=== PATIENT | female | born 1950 | race Caucasian/White ===

== ENCOUNTER 2017-06-19 10:58 | Emergency (ER) | payer OTHER ==
[~2017-06-19] VITALS: Ht 157.5 cm; Wt 58.1 kg
[~2017-06-19 10:58] MED LIST: BACTRIM DS TAB1 EACH PO; CELEXA20 MG PO; FLONASE 0.05%50 MCG NASAL; LISINOPRIL20 MG PO; VENTOLIN HFA 1818 GM INH
[2017-06-19 11:00] VITALS: BP 131/86
[2017-06-19] MEDS ORDERED: NORCO 5-325 TA1 EACH PO (11:11)
[2017-06-19] MEDS ORDERED: PREDNISONE 10 M10 MG PO (11:12)
== END 2017-06-19 11:30 | disposition home or self-care (01) ==
LOC: ER 10:58
DX: M76.32 Iliotibial band syndrome, left leg (principal); I10 Essential (primary) hypertension; F32.9 Major depressive disorder, single episode, unspecified; Z98.890 Other specified postprocedural states; Z88.1 Allergy status to other antibiotic agents

== ENCOUNTER → 2017-08-08 | Outpatient (CLI) | payer OTHER ==
[~2017-08-08] MED LIST changes: +NORCO 5-325 TA1 EACH PO; +PREDNISONE 10 M10 MG PO
== END ==
LOC: MRI 12:37
DX: M25.551 Pain in right hip (principal); F17.200 Nicotine dependence, unspecified, uncomplicated

== ENCOUNTER 2018-05-27 04:17 | Inpatient (IN) | payer OTHER ==
[~2018-05-27] VITALS: Ht 154.9 cm; Wt 57.6 kg
--- NOTE | ~2018-05-27 | EKG ---
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: Ge FIELD : 1950 Requested By: Mateo Howell Order Number: [id number] MD: Maury Guzman Measurements Intervals [place] Rate: 83 P: 42 ME: 163 QRS: -53 QRSD: 92 T: 28 QT: 364 QTc: 428 Interpretive Statements Sinus rhythm Left anterior fascicular block Abnormal R-wave progression, early transition Compared to ECG 12/29/2015 10:30:23 Left anterior fascicular block now present Sinus bradycardia no longer present Electronically Signed On 06-03-2018 16:54:09 CDT by Maury Guzman [email or web address] <ELECTRONICALLY SIGNED> By: Maury Guzman MD 06/03/18 1654 1514 1514 Maury Guzman MD /EPI
--- NOTE | ~2018-05-27 | EKG ---
[address] [place] [address] ELECTROCARDIOGRAM REPORT Name: OKSANA MARIN Room #: 200-I [facility] IN M.R.#: [id number] Admission: 05/27/18 Attend Phys: Glenn Alfaro MD Discharge: 05/30/18 Date of : 48 Report #: [id number] THIS REPORT FOR: //name// [facility] ED Test Date: 2018-05-27 Test Time: 04:45:13 Pat Name: OKSANA MARIN Department: Room: 200 Gender: F Visual Basic Programmer: IVÁN : 1950 Requested By: Matias Granda Order Number: [id number] MD: Maury Guzman Measurements Intervals [place] Rate: 91 P: 60 TN: 170 QRS: -46 QRSD: 93 T: 45 QT: 352 QTc: 434 Interpretive Statements Sinus rhythm Probable left atrial enlargement Left anterior fascicular block Compared to ECG 12/29/2015 10:30:23 Left anterior fascicular block now present Sinus bradycardia no longer present Electronically Signed On 05-31-2018 14:35:14 CDT by Maury Guzman [email or web address] <ELECTRONICALLY SIGNED> By: Maury Guzman MD 05/31/18 1435 0445 0445 Maury Guzman MD /EPI
--- NOTE | ~2018-05-27 | 2DMMODE ---
[facility] [address] [place] [address] 2 D/M-MODE ECHOCARDIOGRAM Name: OKSANA MARIN Room #: 200-I ADM IN .R.#: [id number] Admission: 05/27/18 Attend Phys: Glenn Alfaro MD Discharge: Date of : 48 Date of Service: 05/27/18 1545 Report #: [id number] THIS REPORT FOR: //name// APPROVED REPORT Study performed: 05/27/2018 14:55:04 EXAM: Comprehensive 2D, Doppler, and color-flow Echocardiogram Patient Location: Bedside Room #: 200 Status: routine BSA: 1.56 HR: 62 bpm BP: 149/79 mmHg Rhythm: NSR Other Information Study Quality: Adequate Indications Elevated Troponin Hypertension/HDD 2D Dimensions RVDd: 34.20 mm IVSd: 8.95 (7-11mm) LVOT Diam: 18.86 (18-24mm) LVDd: 46.21 mm PWd: 8.84 (7-11mm) Ascending Ao: 29.04 (22-36mm) LVDs: 28.09 (25-40mm) Aortic Root: 29.88 mm IVC: 14.00 mm Volumes Left Atrial Volume (Systole) Single Plane 4CH: 35.88 mL Single Plane 2CH: 31.20 mL LA ESV Index: 24.00 mL/m2 Aortic Valve AoV Peak Kirill.: 1.35 m/s AO Peak Gr.: 7.32 mmHg LVOT Max P.36 mmHg LVOT Max V: 1.26 m/s NIKKI Vmax: 2.60 cm2 Mitral Valve E/A Ratio: 1.1 MV Decel. Time: 157.89 ms [facility] [address] [place] [address] 2 D/M-MODE ECHOCARDIOGRAM Name: OKSANA MARIN Room #: 200-I [facility] IN [facility].#: [id number] Admission: 05/27/18 Attend Phys: Glenn Alfaro MD Discharge: Date of : 48 Date of Service: 05/27/18 1545 Report #: [id number] MV E Max Kirill.: 0.93 m/s MV A Kirill.: 0.86 m/s MV PHT: 45.79 ms IVRT: 73.82 ms Pulmonary Valve PV Peak Kirill.: 0.86 m/s PV Peak Gr.: 2.97 mmHg Pulmonary Vein P Vein S: 0.64 m/s P Vein A: 0.36 m/s P Vein D: 0.47 m/s P Vein A Dur.: 129.2 msec P Vein S/D Ratio: 1.36 Tricuspid Valve TR Peak Kirill.: 2.82 m/s TR Peak Gr.: 31.89 mmHg PA Pressure: 37.00 mmHg Left Ventricle The left ventricle is normal size. There is normal LV segmental wall motion. There is normal left ventricular wall thickness. The left ventricular systolic function is normal. The left ventricular ejection fraction is within the normal range. LVEF is 55-60%. Grade I - abnormal relaxation pattern. Right Ventricle The right ventricle is normal size. The right ventricular systolic function is normal. Atria The left atrium size is normal. The right atrium size is normal. Aortic Valve The aortic valve is normal in structure. No aortic regurgitation is present. There is no aortic valvular stenosis. Mitral Valve The mitral valve is normal in structure. Mild mitral regurgitation. No evidence of mitral valve stenosis. Tricuspid Valve The tricuspid valve is normal in structure. There is trace to mild tricuspid regurgitation. Estimated PAP 37 mmHg. There is mild pulmonary hypertension. [address] [address] 2 D/M-MODE ECHOCARDIOGRAM Name: OKSANA MARIN Room #: 200-I ADM IN ..#: [id number] Admission: 05/27/18 Attend Phys: Glenn Alfaro MD Discharge: Date of : 48 Date of Service: 05/27/18 1545 Report #: [id number] Pulmonic Valve The pulmonary valve is normal in structure. Trace pulmonic regurgitation. Great Vessels The aortic root is normal in size. IVC is normal in size and collapses >50% with inspiration. Pericardium There is no pericardial effusion. <Conclusion> The left ventricle is normal size. There is normal left ventricular wall thickness. The left ventricular systolic function is normal. Grade I - abnormal relaxation pattern. The right ventricle is normal size. The left atrium size is normal. There is no aortic valvular stenosis. Mild mitral regurgitation. There is trace to mild tricuspid regurgitation. Estimated PAP 37 mmHg. There is no pericardial effusion. <ELECTRONICALLY SIGNED> By: Musa Ordaz MD 05/27/18 1545 1545 1545 Musa Ordaz MD /INF
--- NOTE | ~2018-05-27 | CATHLAB ---
[facility] [address] [place] [address] INVASIVE PROCEDURE REPORT Name: OKSANA MARIN Room #: 200-I ADM IN ..#: [id number] Admission: 05/27/18 Attend Phys: Glenn Alfaro MD Discharge: Date of : 48 Date of Service: 05/28/18 1555 Report #: [id number] THIS REPORT FOR: //name// APPROVED REPORT Study performed: 05/28/2018 07:36:10 Patient Details Patient Status: In-Patient Room #: The patient is a 67 year-old female Event Personnel Musa Ordaz [address] Bailiff, Judith Rivera CVT Monitor, Corazon Kramer RN RN, Gary García Scryanci Procedures Performed Left Heart Cath w/or w/o Coronaries [id number] [facility] Indication Dyspnea, Chest pain, Minimal troponin elevation. Risk Factors Hypercholesterolemia, Hypertension Procedure Narrative The Right Groin^ was infiltrated with subcutaneous anesthesia. A PINNACLE 4FR Sheath #[id number] sheath was inserted into the RFA^. Coronary angiography was performed using coronary diagnostic catheters. The right coronary system was accessed and visualized with a JR4 catheter. The left coronary system was accessed and visualized with a JL4 catheter. The left ventricle was accessed and visualized with a PIGTAIL catheter. Left ventricular/Aortic Valve gradient assessed via catheter pullback. Left ventriculogram was performed in 30 degree projection. Hemostasis was obtained with manual pressure following sheath removal without any complications. The patient tolerated the procedure well and there were no complications associated with the procedure. There was no hematoma. Intraoperative Conscious Sedation Sedation start time: 8.17 Case end Time: 8.57 Fentanyl 50 mcg Versed 1 mg Fluoro Time: 2.80 minutes Dose: DAP 4513.00 cGycm2 707 mGy [facility] [address] [place] [address] INVASIVE PROCEDURE REPORT Name: OKASNA MARIN Room #: 200-I [facility] IN [facility].#: [id number] Admission: 05/27/18 Attend Phys: Glenn Alfaro MD Discharge: Date of : 48 Date of Service: 05/28/18 1555 Report #: [id number] Contrast Type and Amount: Omnipaque 170 ml Coronary Angiography The patient's coronary anatomy is right dominant. Diagnostic Cath Left Main Patent vessel, with no flow-limiting lesions. LAD Moderate size caliber vessel, traveling down the anterior wall and wrapping around the apex. There is only mild disease in the midsegment, 20%. Diagonal 1 Patent vessel, with no flow-limiting lesions. Diagonal 2 Patent vessel, with no flow-limiting lesions. Circumflex Moderate size caliber vessel, with no flow-limiting lesions. OM1 Moderate size caliber vessel, with no flow-limiting lesions. Right Coronary Dominant vessel, with minimal luminal irregularities in the midsegment. R PDA Patent vessel, with no flow-limiting lesions. RPLV Patent vessel, with no flow-limiting lesions. Ramus Patent vessel, with no flow-limiting lesions. Left Ventriculography The left ventricle is normal in size with normal contractility. The left ventricular ejection fraction is estimated to be 55-60%. Hemodynamics The aortic pressure is 120/64 mmHg with a mean of 82 mmHg. The left ventricular pressure is 113/12 mmHg with a mean of mmHg. The left ventricular end diastolic pressure is 20 mmHg. There was no gradient across the aortic valve upon pullback. Pullback from the left ventricle to the aorta revealed no gradient across the aortic valve. Conclusion 1. Mild disease in the LAD. 2. Right dominant system. 3. Normal LV systolic function. 4. Recommend risk factor management. <ELECTRONICALLY SIGNED> By: Musa Ordaz MD 05/28/18 1555 1555 1555 Musa Ordaz MD /INF
--- NOTE | ~2018-05-27 | PATH ---
[facility] [address] [address] PATHOLOGY RPT PROCEDURE Name: BEE YU Room #: 200-I DIS IN M.R.#: [id number] Admission: 05/27/18 Date of : 48 Discharge: 05/30/18 Report #: [id number] Path Case #: [id number] [facility] Accession Number: [id number] . 01 Material submitted: . PART A: BX SMALL BOWEL R/O CELIAC DISEASE PART B: BX GASTRITIS . 01 Clinical history: . Pre-OP DX: Nausea Post-OP DX: Gastritis . 02 Diagnosis: A. Small bowel mucosa, small bowel rule out celiac disease, endoscopic biopsy: - No diagnostic abnormalities present. - Negative for villous blunting or increase in intraepithelial lymphocytes. . B. Gastric mucosa, gastritis, endoscopic biopsy: - Mild chronic active gastritis. - Negative for intestinal metaplasia or atrophy. - Negative for Helicobacter pylori (properly controlled immunohistochemical stain performed). (IUV:pit 05/30/2018) QTP/05/30/2018 . 02 Electronically signed: . Arianne Shanks MD, Pathologist NPI- [id number] . 01 Gross description: . A. Received in formalin labeled "Bee Yu, ADARSH small bowel, rule out celiac," is a single segment of ayala soft tissue measuring 0.4 cm in maximum dimension. The specimen is entirely submitted in cassette A1. . B. Received in formalin labeled "Bee Yu, ADARSH gastritis," is a single segment of ayala soft tissue measuring 0.7 cm in maximum dimension. The specimen is entirely submitted in cassette B1. (TSD; 05/29/2018) TOB/TOB . 02 Pathologist provided ICD-10: K29.50, R11.0 . 02 CPT . 174381, [id number], [id number] [address] [address] PATHOLOGY RPT PROCEDURE Name: BEE YU JF Room #: 200-I [facility] IN .R.#: [id number] Admission: 05/27/18 Date of : 48 Discharge: 05/30/18 Report #: [id number] Path Case #: [id number] Specimen Comment: A courtesy copy of this report has been sent to Specimen Comment: [phone], , . Specimen Comment: Report sent to ,DR DYER / DR MATSON Performed at: [address], [place], [place] [id number] MD Mike Tim MD Phone: [phone] Performed at: [address] [id number] MD Arianne Shanks MD Phone: [phone]
[2018-05-27 04:39] LABS: ABSOLUTE NEUTROPHILS 13.6 thou/uL (1.4-8.2); BASOPHILS 0.8 % (0.0-2.0); HEMATOCRIT 45.2 % (37.0-47.0); HEMOGLOBIN 15.9 gm/dL (12.0-15.0); LYMPHOCYTES 13.4 % (24.0-44.0); MCHC 35.2 g/dL (28.0-37.0); MCV 93.7 fL (80.0-100.0); MONOCYTES 6.8 % (1.0-8.0); PLATELET COUNT 281 thou/uL (150-400); RBC 4.82 mil/uL (4.20-5.00); RDW 13.6 % (10.5-14.5); WBC 17.2 thou/uL (4.0-11.0)
[2018-05-27 04:48] LABS: CALCIUM 10.1 mg/dL (8.5-10.1); CREATININE 1.2 mg/dL (0.6-1.0); POTASSIUM 3.5 mmol/L (3.5-5.1)
[2018-05-27 04:56] LABS: ALBUMIN 4.7 g/dL (3.4-5.0); TOTAL BILIRUBIN 0.8 mg/dL (<0.1-1.0); TOTAL PROTEIN 8.4 g/dL (6.4-8.2); TROPONIN-I 0.26 ng/mL (<0.06)
[2018-05-27 06:33] VITALS: BP 126/61
[2018-05-27 07:31] LABS: URINE BILIRUBIN NEGATIVE (Negative); URINE BLOOD 2+ (Negative); URINE CLARITY SL CLOUDY; URINE COLOR YELLOW; URINE GLUCOSE-RANDOM* NEGATIVE (Negative); URINE KETONES 1+ (Negative); URINE NITRITE-REFLEX NEGATIVE (Negative); URINE PROTEIN (DIPSTICK) 2+ (Negative); URINE UROBILINOGEN 0.2 E.U./dl (0.2-1.0)
[2018-05-27 07:33] LABS: URINE LEUKOCYTES-REFLEX TRACE (Negative)
[2018-05-27 07:47] VITALS: BP 171/92
[2018-05-27 08:15] VITALS: BP 178/91
[2018-05-27 08:32] LABS: BACTERIA-REFLEX >30 Many /HPF (None Seen); CASTS None Seen /LPF (None Seen); CRYSTALS None Seen /LPF (None Seen); SQUAMOUS 4-10 Moderate /LPF (0-3); URINE RBC 3-10 Few /HPF (0-2)
[2018-05-27] MEDS ORDERED: MELOXICAM15 MG PO (09:09)
[2018-05-27] MEDS ORDERED: ZOCOR20 MG PO (09:10)
[2018-05-27 11:15] VITALS: BP 149/79
[2018-05-27 14:01] LABS: CHOLESTEROL 212 mg/dL (<200); HDL CHOLESTEROL 110 mg/dL (>40); LDL CHOLESTEROL 89 mg/dL (<100); TC:HDL 1.9 Ratio (Not establshd); TRIGLYCERIDE 66 mg/dL (<150); VLDL 13 mg/dL (<40)
[2018-05-27 17:35] VITALS: BP 136/72
[2018-05-27 21:28] VITALS: BP 104/68
[2018-05-28 03:45] VITALS: BP 109/68
[2018-05-28 04:08] LABS: GLYCOHEMOGLOBIN (HGB A1C) 5.2 % (4.8-5.6)
[2018-05-28 04:14] LABS: CALCIUM 8.6 mg/dL (8.5-10.1); MAGNESIUM 2.4 mg/dL (1.8-2.4); TROPONIN-I 0.39 ng/mL (<0.06)
[2018-05-28 04:16] LABS: POTASSIUM 2.9 mmol/L (3.5-5.1)
[2018-05-28 05:11] LABS: ABSOLUTE NEUTROPHILS 5.6 thou/uL (1.4-8.2); BASOPHILS 0.6 % (0.0-2.0); EOSINOPHILS 1.3 % (0.0-3.0); HEMATOCRIT 36.4 % (37.0-47.0); LYMPHOCYTES 21.2 % (24.0-44.0); MCH 33.4 pg (26.0-34.0); MCHC 35.3 g/dL (28.0-37.0); MCV 94.7 fL (80.0-100.0); MONOCYTES 9.6 % (1.0-8.0); POLYS 67.3 % (36.0-66.0); RBC 3.84 mil/uL (4.20-5.00); RDW 13.7 % (10.5-14.5); WBC 8.4 thou/uL (4.0-11.0)
[2018-05-28 05:18] LABS: HEMOGLOBIN 12.8 gm/dL (12.0-15.0); PLATELET COUNT 183 thou/uL (150-400)
[2018-05-28 07:15] VITALS: BP 121/69
[2018-05-28 09:15] VITALS: BP 116/70
[2018-05-28 12:05] VITALS: BP 176/89
[2018-05-28 16:05] VITALS: BP 166/80
[2018-05-28 19:06] VITALS: BP 142/75
[2018-05-29] VITALS (8 sets, daily range): BP systolic 110–185; BP diastolic 66–104
[2018-05-29 03:55] LABS: CALCIUM 8.7 mg/dL (8.5-10.1); CREATININE 0.9 mg/dL (0.6-1.0)
[2018-05-29 04:28] LABS: ABSOLUTE NEUTROPHILS 4.5 thou/uL (1.4-8.2); BASOPHILS 0.6 % (0.0-2.0); EOSINOPHILS 3.4 % (0.0-3.0); HEMATOCRIT 38.5 % (37.0-47.0); HEMOGLOBIN 13.1 gm/dL (12.0-15.0); MCH 32.6 pg (26.0-34.0); MCHC 34.2 g/dL (28.0-37.0); MCV 95.5 fL (80.0-100.0); MONOCYTES 9.8 % (1.0-8.0); PLATELET COUNT 185 thou/uL (150-400); POLYS 62.2 % (36.0-66.0); RBC 4.03 mil/uL (4.20-5.00); RDW 13.5 % (10.5-14.5); WBC 7.2 thou/uL (4.0-11.0)
[2018-05-29] MEDS ORDERED: ACIDOPHILUS1 EAC4 PO (13:36)
[2018-05-29] MEDS ORDERED: CARAFATE 1 GM TA1 G1 PO (13:36)
[2018-05-29] MEDS ORDERED: MIRALAX17 GM PO (13:36)
[2018-05-29] MEDS ORDERED: CIPRO500 MG PO (13:36)
[2018-05-29] MEDS ORDERED: PROTONIX40 M1 PO (13:36)
[2018-05-29] MEDS ORDERED: PROMS25 WY RECTAL (15:17)
[2018-05-29] MEDS ORDERED: ZOFRAN ODT4 M1 PO (15:17)
[2018-05-30 03:26] LABS: CALCIUM 8.9 mg/dL (8.5-10.1); CREATININE 0.9 mg/dL (0.6-1.0); POTASSIUM 3.7 mmol/L (3.5-5.1)
[2018-05-30 03:38] VITALS: BP 117/72
[2018-05-30 04:06] LABS: HEMATOCRIT 39.5 % (37.0-47.0); MCH 33.4 pg (26.0-34.0); MCHC 35.3 g/dL (28.0-37.0); MCV 94.6 fL (80.0-100.0); RBC 4.17 mil/uL (4.20-5.00); RDW 13.5 % (10.5-14.5); WBC 7.2 thou/uL (4.0-11.0)
[2018-05-30 07:07] VITALS: BP 130/80
[2018-05-30 11:45] VITALS: BP 145/88
[2018-05-30 12:09] VITALS: BP 175/77
[2018-05-30 13:20] VITALS: BP 175/77
== END 2018-05-30 13:45 | disposition home or self-care (01) | DRG 286 ==
LOC: ER 04:17 → 2N 06:16 → EROBS 06:16 → 2N 07:54 → ENTRNSPT 05-28 15:07 → EDTRNSPTSTS 05-28 15:10 → DELTRNSPT 05-28 15:14 → ENTRNSPT 05-29 14:18 → EDTRNSPTSTS 05-29 14:35 → EDTRNSPT 05-30 13:20 → DELTRNSPT 05-30 13:21 → ENTRNSPT 05-30 13:21 → EDTRNSPTSTS 05-30 13:27 → 2N 05-30 13:45
PROVIDERS: Emergency Medicine; Hospitalist; Nurse Practitioner; Student in an Organized Health Care Education/Training Program
PROC: B2151ZZ Fluoroscopy of Left Heart using Low Osmolar Contrast (ICD-10-PCS; principal; 2018-05-28)
PROC: B2111ZZ Fluoroscopy of Multiple Coronary Arteries using Low Osmolar Contrast (ICD-10-PCS; principal; 2018-05-28)
PROC: 4A023N7 Measurement of Cardiac Sampling and Pressure, Left Heart, Percutaneous Approach (ICD-10-PCS; principal; 2018-05-28)
PROC: 0DB98ZX Excision of Duodenum, Via Natural or Artificial Opening Endoscopic, Diagnostic (ICD-10-PCS; 2018-05-29)
PROC: 0D758ZZ Dilation of Esophagus, Via Natural or Artificial Opening Endoscopic (ICD-10-PCS; 2018-05-29)
PROC: 0DB68ZX Excision of Stomach, Via Natural or Artificial Opening Endoscopic, Diagnostic (ICD-10-PCS; 2018-05-29)
DX: R07.89 Other chest pain (principal); N17.0 Acute kidney failure with tubular necrosis; N39.0 Urinary tract infection, site not specified; K25.9 Gastric ulcer, unspecified as acute or chronic, without hemorrhage or perforation; K29.70 Gastritis, unspecified, without bleeding; I10 Essential (primary) hypertension; K29.80 Duodenitis without bleeding; F32.9 Major depressive disorder, single episode, unspecified; E86.0 Dehydration; E78.5 Hyperlipidemia, unspecified; J44.9 Chronic obstructive pulmonary disease, unspecified; K21.9 Gastro-esophageal reflux disease without esophagitis; F17.210 Nicotine dependence, cigarettes, uncomplicated; K59.00 Constipation, unspecified; F12.10 Cannabis abuse, uncomplicated; F10.10 Alcohol abuse, uncomplicated; F41.9 Anxiety disorder, unspecified; E87.6 Hypokalemia; K44.9 Diaphragmatic hernia without obstruction or gangrene; S10.0XXA Contusion of throat, initial encounter; X58.XXXA Exposure to other specified factors, initial encounter; Y93.89 Activity, other specified; Y92.89 Other specified places as the place of occurrence of the external cause; Y99.8 Other external cause status; Z79.51 Long term (current) use of inhaled steroids; Z79.899 Other long term (current) drug therapy; Z71.41 Alcohol abuse counseling and surveillance of alcoholic; Z71.51 Drug abuse counseling and surveillance of drug abuser; Z71.6 Tobacco abuse counseling; Z88.1 Allergy status to other antibiotic agents
CPT/HCPCS: 10081; 62110; 62900

== ENCOUNTER 2019-07-07 12:01 | Inpatient (IN) | payer OTHER ==
[~2019-07-07] VITALS: Ht 154.9 cm; Wt 60.3 kg
[2019-07-07] VITALS (10 sets, daily range): BP systolic 106–165; BP diastolic 63–113
[~2019-07-07 12:01] MED LIST changes: +ACIDOPHILUS1 EAC4 PO; +CARAFATE 1 GM TA1 G1 PO; +CIPRO500 MG PO; +MELOXICAM15 MG PO; +MIRALAX17 GM PO; +PROMS25 WY RECTAL; +PROTONIX40 M1 PO; +ZOCOR20 MG PO; +ZOFRAN ODT4 M1 PO
[2019-07-07] MEDS ORDERED: ASPIRIN325 PO (12:30)
[2019-07-07] MEDS ORDERED: ASA81BEC PO (12:30)
[2019-07-07] MEDS ORDERED: PERCOCET 5-3251 EACH PO (12:31)
[2019-07-07 12:53] LABS: ABSOLUTE NEUTROPHILS 11.8 thou/uL (1.4-8.2); BASOPHILS 0.5 % (0.0-2.0); EOSINOPHILS 0.1 % (0.0-3.0); HEMOGLOBIN 13.7 gm/dL (12.0-15.0); LYMPHOCYTES 7.4 % (24.0-44.0); MCH 32.6 pg (26.0-34.0); MCHC 33.5 g/dL (28.0-37.0); MCV 97.4 fL (80.0-100.0); MONOCYTES 4.8 % (1.0-8.0); PLATELET COUNT 294 thou/uL (150-400); POLYS 87.2 % (36.0-66.0); RBC 4.21 mil/uL (4.20-5.00); RDW 13.7 % (10.5-14.5); WBC 13.5 thou/uL (4.0-11.0)
[2019-07-07 12:57] LABS: CALCIUM 9.3 mg/dL (8.5-10.1); CREATININE 0.9 mg/dL (0.6-1.0); POTASSIUM 3.7 mmol/L (3.5-5.1)
[2019-07-07 13:07] LABS: ALBUMIN 3.8 g/dL (3.4-5.0); TOTAL PROTEIN 7.6 g/dL (6.4-8.2)
[2019-07-07 13:09] LABS: TROPONIN-I 1.82 ng/mL (<0.06)
[2019-07-07 14:08] LABS: BE(vivo) -6.3 mmol/L (-2 to +3); HCO3 19.1 mmol/L (22.0-26.0); PCO2 37.5 mmHg (35.0-45.0); pH 7.325 (7.360-7.450); sO2 92.1 % (92.0-98.0)
[2019-07-07 15:13] LABS: CHOLESTEROL 210 mg/dL (<200); HDL CHOLESTEROL 83 mg/dL (>40); LDL CHOLESTEROL 110 mg/dL (<100); TC:HDL 2.5 Ratio (Not establshd); TRIGLYCERIDE 86 mg/dL (<150); VLDL 17 mg/dL (<40)
[2019-07-07 15:39] LABS: TSH 0.969 uIU/mL (0.358-3.740)
[2019-07-07 16:07] LABS: FOLIC ACID 52.9 ng/mL (8.6-58.9)
[2019-07-07 17:14] LABS: BE(vivo) -5.9 mmol/L (-2 to +3); HCO3 18.8 mmol/L (22.0-26.0); PCO2 34.7 mmHg (35.0-45.0); PO2 136.8 mmHg (80.0-100.0); pH 7.352 (7.360-7.450); sO2 98.6 % (92.0-98.0)
--- NOTE | 2019-07-07 19:37 | NUR ---
PT TRANSFERRED TO ICU FROM ER AT 1815. PT'S AT BEDSIDE. IV INFILTRATED AND LEAKING ON ARRIVAL. NEW IV STARTED. CARDIZEM GTT INFUSING. VSS. 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 PT ON BIPAP AND TOLERATING WELL. REPORT GIVEN TO ENGAGEMENT QUALITY CONSULTANT RN.
[2019-07-07 23:10] LABS: GLYCOHEMOGLOBIN (HGB A1C) 5.5 % (4.8-5.6)
[2019-07-08] VITALS (25 sets, daily range): BP systolic 97–126; BP diastolic 63–90
--- NOTE | 2019-07-08 02:30 | NUR ---
2039 Received report from Ronit and assumed patient care. 2045 Dr. Ordaz notified that patient's Troponin level has risen from 1.[address] Ordaz stated that if patient is not having chest pain to cancel serial Troponin's and draw the next at 0600. 2053 Dr[address] Ordaz notified that patient has chest pain and received orders for EKG. 2113 EKG completed. Patient rates chest pain at this time 12/18. [address] Soares and received orders to take patient off the BiPap and to keep O2 sats above 92% 2257 Patient complains of chest pain again 04/19. Patient given Nitroglycerin SL and within 2 minutes, patient reports pain is relieved and only 10/20. 2358 Dr. Ordaz notified of EKG findings (ST; left axis deviation; abnormal R-wave progression). Dr. Ordaz stated not to draw the next Troponin until 0600 again. 7 Patient assessed for pain. Patient states she does not have any chest pain and rates it 0/.
[2019-07-08 07:01] LABS: ABSOLUTE NEUTROPHILS 10.4 thou/uL (1.4-8.2); BASOPHILS 0.7 % (0.0-2.0); HEMATOCRIT 37.9 % (37.0-47.0); HEMOGLOBIN 12.7 gm/dL (12.0-15.0); LYMPHOCYTES 8.9 % (24.0-44.0); MCH 32.6 pg (26.0-34.0); MCHC 33.5 g/dL (28.0-37.0); MCV 97.3 fL (80.0-100.0); MONOCYTES 7.2 % (1.0-8.0); PLATELET COUNT 301 thou/uL (150-400); POLYS 83.2 % (36.0-66.0); RDW 13.6 % (10.5-14.5); WBC 12.5 thou/uL (4.0-11.0)
[2019-07-08 07:09] LABS: CREATININE 1.1 mg/dL (0.6-1.0); MAGNESIUM 1.8 mg/dL (1.8-2.4); POTASSIUM 3.6 mmol/L (3.5-5.1)
--- NOTE | 2019-07-08 08:35 | EKG ---
[place] [address] [address] [facility] [employer] [place] [address] ELECTROCARDIOGRAM REPORT Name: OKSANA MARIN Room #: 247-P ADM IN M.R.#: [id number] Admission: 07/07/19 Attend Phys: Mateo Howell MD Discharge: Date of : 48 Report #: [id number] THIS REPORT FOR: //name// [facility] ED Test Date: 2019-07-07 Test Time: 13:14:51 Pat Name: OKSANA MARIN Department: Room: 247 Gender: F Political Cartoonist: Zonia MONACO : 1950 Requested By: Eli Sanders Order Number: [id number] MD: Maury Guzman Measurements Intervals [place] Rate: 88 P: 71 [place]: 174 QRS: -21 QRSD: 89 T: 61 QT: 376 QTc: 455 Interpretive Statements Sinus rhythm Ventricular premature complex Borderline left axis deviation Electronically Signed On 07-08-2019 8:35:35 CDT by Maury Guzman [email or web address] <ELECTRONICALLY SIGNED> By: Maury Guzman MD 07/08/19 0835 1314 1314 MD TRIP Lebron
--- NOTE | 2019-07-08 08:36 | EKG ---
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
--- NOTE | 2019-07-08 08:36 | EKG ---
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
--- NOTE | 2019-07-08 08:38 | EKG ---
[place] [address] [facility] [place] [address] ELECTROCARDIOGRAM REPORT Name: OKSANA MARIN Room #: 247-P ADM IN M.R.#: [id number] Admission: 07/07/19 Attend Phys: Mateo Howell MD Discharge: Date of : 48 Report #: [id number] THIS REPORT FOR: //name// [facility] Test Date: 2019-07-07 Test Time: 21:14:06 Pat Name: OKSANA MARIN Department: Room: 247 P Gender: F Oracle R12 Developer: Zonia BOSTON : 1950 Requested By: Musa Ordaz Order Number: [id number] MD: Favio Young Measurements Intervals [place] Rate: 107 P: 71 [place]: 160 QRS: -33 QRSD: 84 T: 84 QT: 325 QTc: 434 Interpretive Statements Sinus tachycardia Left axis deviation Abnormal R-wave progression, early transition Compared to ECG 05/29/2018 15:14:03 Heart rate has slowed Electronically Signed On 07-08-2019 8:37:59 CDT by Favio Young [email or web address] <ELECTRONICALLY SIGNED> By: Favio Young MD, [facility] 07/08/19 0837 13 13 Favio Young MD, [facility] /EPI
--- NOTE | 2019-07-08 08:39 | EKG ---
[place] [address] [facility] [place] [address] ELECTROCARDIOGRAM REPORT Name: OKSANA MARIN Room #: 247-P ADM IN M.R.#: [id number] Admission: 07/07/19 Attend Phys: Mateo Howell MD Discharge: Date of : 48 Report #: [id number] THIS REPORT FOR: //name// 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: SUMMER : 1950 Requested By: Ana Collins Order Number: [id number] MD: Favio Young Measurements Intervals [place] Rate: 100 P: 61 [place]: 161 QRS: -43 QRSD: 89 T: 83 QT: 334 QTc: 431 Interpretive Statements Sinus tachycardia Left axis deviation Low voltage, precordial leads Abnormal R-wave progression, early transition Borderline abnrm T, anterolateral leads Compared to ECG 05/29/2018 15:14:03 No significant change was found Electronically Signed On 07-08-2019 8:39:38 CDT by Favio Young [email or web address] <ELECTRONICALLY SIGNED> By: Favio Young MD, [facility] 07/08/19 0839 0725 Favio Young MD, [facility] /EPI
--- NOTE | 2019-07-08 09:12 | 2DMMODE ---
[facility] [address] [place] [address] 2 D/M-MODE ECHOCARDIOGRAM Name: OKSANA MARIN Room #: 247-P ADM IN ..#: [id number] Admission: 07/07/19 Attend Phys: Mateo Howell MD Discharge: Date of : 48 Report #: [id number] THIS REPORT FOR: //name// APPROVED REPORT Study performed: 07/08/2019 08:21:32 EXAM: Comprehensive 2D, Doppler, and color-flow Echocardiogram Patient Location: ER Room #: [facility] Status: routine BSA: 1.57 HR: 103 bpm BP: 123/75 mmHg Rhythm: Tachycardia Other Information Study Quality: Good Indications COPD Dyspnea Elevated Troponin Hypertension/HDD 2D Dimensions RVDd: 28.27 mm IVSd: 7.45 (7-11mm) LVOT Diam: 18.56 (18-24mm) LVDd: 44.97 mm PWd: 8.34 (7-11mm) Ascending Ao: 30.14 (22-36mm) LVDs: 35.93 (25-40mm) Aortic Root: 30.46 mm IVC: 22.00 mm Volumes Left Atrial Volume (Systole) Single Plane 4CH: 46.67 mL Single Plane 2CH: 42.91 mL LA ESV Index: 32.00 mL/m2 Aortic Valve AoV Peak Kirill.: 0.93 m/s AO Peak Gr.: 3.50 mmHg LVOT Max P.51 mmHg LVOT Max V: 0.94 m/s NIKKI Vmax: 2.71 cm2 Mitral Valve [facility] [address] [place] [address] 2 D/M-MODE ECHOCARDIOGRAM Name: OKSANA MARIN Room #: 247-P [facility] IN [facility].#: [id number] Admission: 07/07/19 Attend Phys: Mateo Howell MD Discharge: Date of : 48 Report #: [id number] E/A Ratio: 1.6 MV Decel. Time: 58.24 ms MV E Max Kirill.: 0.97 m/s MV A Kirill.: 0.60 m/s MV PHT: 16.89 ms IVRT: 79.58 ms Pulmonary Valve PV Peak Kirill.: 0.81 m/s PV Peak Gr.: 2.64 mmHg Pulmonary Vein P Vein S: 0.51 m/s P Vein A: 0.25 m/s P Vein D: 0.45 m/s P Vein A Dur.: 72.7 msec P Vein S/D Ratio: 1.13 Tricuspid Valve TR Peak Kirill.: 3.09 m/s TR Peak Gr.: 38.24 mmHg PA Pressure: 48.00 mmHg Left Ventricle The left ventricle is normal size. There is hypokinesis of the distal anteroseptal, apical and distal inferior segments. There is normal left ventricular wall thickness. Left ventricular systolic function is mild to moderately decreased. LVEF is 40-45%. Grade II - pseudonormal filling dynamics. Right Ventricle The right ventricle is normal size. The right ventricular systolic function is normal. Atria The left atrium size is normal. The right atrium size is normal. Aortic Valve The aortic valve is normal in structure. Aortic valve is calcified. No aortic regurgitation is present. There is no aortic valvular stenosis. Mitral Valve The mitral valve is normal in structure. Trace to mild mitral regurgitation. No evidence of mitral valve stenosis. Tricuspid Valve The tricuspid valve is normal in structure. There is mild tricuspid [facility] [address] [place] [address] 2 D/M-MODE ECHOCARDIOGRAM Name: OKSANA MARIN Room #: [facility] IN .R.#: [id number] Admission: 07/07/19 Attend Phys: Mateo Howell MD Discharge: Date of : 48 Report #: [id number] regurgitation. Estimated PAP 48 mmHg. There is moderate pulmonary hypertension. Pulmonic Valve The pulmonary valve is normal in structure. Trace pulmonic regurgitation. Great Vessels The aortic root is normal in size. IVC is dilated and collapses <50% with inspiration. Pericardium There is no pericardial effusion. <Conclusion> The left ventricle is normal size. There is normal left ventricular wall thickness. Left ventricular systolic function is mild to moderately decreased. There is hypokinesis of the distal anteroseptal, apical and distal inferior segments. Grade II - pseudonormal filling dynamics. The right ventricle is normal size. The left atrium size is normal. Aortic valve is calcified. Trace to mild mitral regurgitation. There is mild tricuspid regurgitation. Estimated PAP 48 mmHg. <ELECTRONICALLY SIGNED> By: Musa Ordaz MD 07/08/19910 0 0 Musa Ordaz MD /INF
[2019-07-08 17:06] LABS: AMYLASE 34 U/L (25-115); LIPASE 54 U/L (73-393)
--- NOTE | 2019-07-08 20:01 | NUR ---
PATIENT CONTINUES TO COMPLAIN OF CHEST ACHING WITH WORSE WITH COUGH, PAIN REGIMENT ADRESS AND COUGH MEDS GIVEN WITH RELIEF. NAUSEATED WITH COUGHING AND ZOFRAN GIVEN WITH RELIEF. PATIENT AWAITING VQ SCAN, AND CARDIAC CATH. PATIENT AND FAMILY UPDATED TO THE POC AND REASSURANCE GIVEN.
[2019-07-09] VITALS (24 sets, daily range): BP systolic 110–135; BP diastolic 70–92
[2019-07-09 05:07] LABS: GLYCOHEMOGLOBIN (HGB A1C) 5.5 % (4.8-5.6)
[2019-07-09 10:25] LABS: HEMATOCRIT 33.1 % (37.0-47.0); HEMOGLOBIN 11.2 gm/dL (12.0-15.0); MCH 33.1 pg (26.0-34.0); MCHC 33.8 g/dL (28.0-37.0); MCV 97.8 fL (80.0-100.0); RBC 3.39 mil/uL (4.20-5.00); RDW 13.4 % (10.5-14.5); WBC 12.8 thou/uL (4.0-11.0)
[2019-07-09 10:39] LABS: CALCIUM 9.3 mg/dL (8.5-10.1); CREATININE 0.7 mg/dL (0.6-1.0); POTASSIUM 3.9 mmol/L (3.5-5.1)
--- NOTE | 2019-07-09 16:09 | NUR ---
ASSESSMENTS AND INTERVENTIONS DOCCUMENTED. PATIENT REMAINS ON O2. PATIENT WENT TO CATH BUT DID NOT PROCEED RELATED TO ALLERGY. PATIENT RETURNED TO UNIT AND VQ TEST WAS DONE. AT BEDSIDE AND EDUCATED ON PLAN OF CARE. THE PLAN OF CARE IS TO TRANSFER TO CCU AND MONITOR NVD, AND RESPIRTORY STATUS.
--- NOTE | 2019-07-09 16:17 | NUR ---
PT ADMITTED RELATED TO NAUSEA, VOMITING, CONSTIPATION, SOA. CM REVIEWED CHART AND SPOKE WITH CARE TEAM. CM MET WITH PT AT BEDSIDE THIS DAY . PT INDICATED SHE HAD BEEN LIVING IN A HOUSE WITH HER SPOUSE WITH 7 STEPS TO ENTER AND NO STEPS INSIDE. PT INDICATED SHE HAD BEEN USING A FWW TO ASSIST WITH [place] HOME DEMONSTRATOR. PT INDICATED THAT SHE HAD LEFT ORIF OF ANKLE 2 WEEKS AGO AND THAT SHE HAS ORDERED A KNEE SCOOTER BUT THAT IT HADN'T ARRIVED OF HER ADMISSION. PT INDICATED NO HH OR OP THERAPY HX. PT INDICATED SHE HAS AN INHALER FOR HOME USE BUT NO O2, NEBULIZER, OR CPAP. PT INIDCATED SHE PLANS TO RETURN HOME ONCE MEDICALLY STABLE. CM TO FOLLOW INDIATED WITH DC PLANNING.
[2019-07-10 04:08] VITALS: BP 130/78
--- NOTE | 2019-07-10 04:22 | NUR ---
PT ARRIVED UNIT AT ABOUT 2300 FROM ICU. PT A/OX4, VITAL SIGNS STABLE, ON 2L 02, NO COMPLAINTS OF PAIN, NO COMPLAINTS OF SOB. ASSESSMENT CHARTED. PT RESTED WELL FOR THE REST OF NIGHT. NO ACUTE CHANGES. PROGRESSING TOWARD PLAN OF CARE. WILL CONTINUE TO MONITOR.
[2019-07-10 08:33] VITALS: BP 136/77
[2019-07-10] MEDS ORDERED: ZYRTEC10 MG PO (12:18)
[2019-07-10] MEDS ORDERED: IPRAT-ALBUT 0.5-3 ML INH (12:19)
[2019-07-10] MEDS ORDERED: METOPROLOL SUCC25 M1 PO (12:22)
[2019-07-10] MEDS ORDERED: NITROSTAT0.4 MG SUBLING (12:22)
[2019-07-10] MEDS ORDERED: LISINOPRIL5 MG PO (12:23)
[2019-07-10] MEDS ORDERED: ASPIR 8181 MG PO (12:23)
[2019-07-10] MEDS ORDERED: LIDOPATCH1 EACH TRANSDERM (12:25)
[2019-07-10] MEDS ORDERED: PREDNISONE 20 M20 MG PO (12:26)
[2019-07-10 12:34] VITALS: BP 122/79
[2019-07-10 15:53] VITALS: BP 122/79
[2019-07-10 16:06] VITALS: BP 122/79
--- NOTE | 2019-07-10 16:59 | NUR ---
[facility] AT SHIFT CHANGE. ASSESSMENTS CHARTED. MEDS GIVEN PER NOV. CAST INTACT ON LEFT LEG. NON WEIGHT BEARING ALTHOUGH PT APPLIED WEIGHT TO FOOT. PT WORKED WITH PHYS THERAPY TOLERATING WELL. VSS, DENIES PAIN. O2 SATS WNL ON 2L, AND ROOM AIR. DC ORDERS ACKNOWLEDGED AND IMPLEMENTED. DC PAPERWORK DISCUSSED WITH PT AND SPOUSE. COMMUNICATES UNDERSTANDING. TELE REMOVED, IV REMOVED. PT LEFT UNTI WITH ALL BELONGINGS AT APPROX 1655.
--- NOTE | 2019-07-10 17:26 | NUR ---
Pt dc'd home today and declined hh referral. Spouse is very attentive. Knee scooter to be delievered tomorrow. No cm interventions indicated.
--- NOTE | 2019-07-15 13:07 | HC ---
[facility] [place] [address] CONSULTATION Name: OKSANA MARIN Room #: 209-P [facility] IN M.R.#: [id number] Admission: 07/07/19 Attend Phys: Mateo Howell MD Discharge: 07/10/19 Date of : 48 Report #: [id number] THIS REPORT FOR: //name// CC: FAM unknown Mateo Howell DATE OF SERVICE: 07/09/2019 We were asked to see the patient by the hospitalists, not 100% sure why we were consulted, but it appears to be related to a splenic artery aneurysm. The patient is also having cardiac catheterization later today, but the results of that are clearly not known at this point. We note, the patient is a 68-year-old who claims that she had 3 glasses of wine and fell at home and fractured her ankle last week. The patient was taking Percocet and over the weekend, she began having nausea and vomiting and she was admitted 2 days ago as she was unable to keep anything down. Since admission, workup has included the CT scan that shows the small calcified splenic artery aneurysm, which is partially thrombosed. The calcium shows that this was a chronic issue and there is no evidence of bleeding and nothing to suggest that this is an acute issue. PAST MEDICAL HISTORY: Includes hypertension for which the patient is treated at home. The patient is also treated for gastroesophageal reflux and elevated cholesterol. MEDICATIONS AT HOME: Include simvastatin, lisinopril, Celexa, aspirin, and the Percocet as mentioned. ALLERGIES: The patient claims to be allergic to CONTRAST DYE, which causes shortness of breath and AMOXICILLIN. SOCIAL HISTORY: In contrast to the Emergency Room note, the patient tells me that she is an active smoker who started at age 44 and she lives with a smoker, who is committed tobacco user. The patient admits to alcohol, one glass of wine daily, but 3 glasses before the fall but she denies other drug use. REVIEW OF SYSTEMS: CONSTITUTIONAL: No fever or chills. EYES: No eye pain or vision change. HEENT: No headache, hearing problems, drainage from ear or sinuses. RESPIRATORY: Denies cough, denies shortness of breath. CARDIAC: Denies chest pain, denies palpitations. GASTROINTESTINAL: As mentioned, nausea and vomiting, no diarrhea. No blood. GENITOURINARY: No burning, frequency or blood. MUSCULOSKELETAL: As mentioned, fall with the fracture. No other bone or joint [facility] [address] [place] [address] CONSULTATION Name: OKSANA MARIN Room #: 209-P [facility] IN M.R.#: [id number] Admission: 07/07/19 Attend Phys: Mateo Howell MD Discharge: 07/10/19 Date of : 48 Report #: [id number] pain. SKIN: No rash or infection. NEUROLOGIC: No specific motor or sensory deficit. The fall seems to be related to alcohol. PHYSICAL EXAMINATION: VITAL SIGNS: Temperature 36.4, pulse rate 83, respiratory rate 18, O2 sat 98 on 3 liters, blood pressure 127/80. HEENT: No scleral icterus. I see no arcus. Pupils are round, equal. NECK: No mass, no bruit. CHEST: Clear to auscultation. HEART: Rhythm regular, no murmurs audible. ABDOMEN: Soft, no mass, no tenderness. EXTREMITIES: We note the cast on the left ankle: No clubbing, cyanosis or edema. VASCULAR: 2+ popliteal pulses bilaterally. NEUROLOGIC: No obvious motor or sensory dysfunction, although the patient is in bed in the Intensive Care Unit. PSYCHIATRIC: Answers questions appropriately and is oriented and appropriate, although appears to be mildly anxious. IMPRESSION: As mentioned, the patient has a small splenic artery aneurysm. This is calcified and appears to be at least partially thrombosed and I reviewed this with the radiologist and he regards it is an incidental finding as do I. I doubt this is contributory to the patient's current problem. I am not sure I have anything else to offer at this point. If I have missed the intent of the consult, please let me know. Thank you for the opportunity to see this patient. <ELECTRONICALLY SIGNED> By: Mitchel Rudolph MD 07/15/19 1307 0748 [id number] Mitchel Rudolph MD /nt
== END 2019-07-10 16:55 | disposition home or self-care (01) | DRG 280 ==
LOC: ER 12:01 → ICU 14:22 → EROBS 14:22 → ICU 17:55 → 2N 07-09 23:18 → ENTRNSPT 07-10 16:49 → 2N 07-10 16:55
PROVIDERS: Hospitalist; Internal Medicine Pulmonary Disease; Nurse Practitioner; Physician Assistant; ADMIT Hospitalist
PROC: 5A09357 Assistance with Respiratory Ventilation, Less than 24 Consecutive Hours, Continuous Positive Airway Pressure (ICD-10-PCS; principal; 2019-07-07)
DX: I21.4 Non-ST elevation (NSTEMI) myocardial infarction (principal); J96.01 Acute respiratory failure with hypoxia; I48.92 Unspecified atrial flutter; E87.1 Hypo-osmolality and hyponatremia; I42.9 Cardiomyopathy, unspecified; I72.8 Aneurysm of other specified arteries; I10 Essential (primary) hypertension; F32.9 Major depressive disorder, single episode, unspecified; E78.00 Pure hypercholesterolemia, unspecified; J44.9 Chronic obstructive pulmonary disease, unspecified; K21.9 Gastro-esophageal reflux disease without esophagitis; E78.5 Hyperlipidemia, unspecified; F17.210 Nicotine dependence, cigarettes, uncomplicated; K59.00 Constipation, unspecified; K57.30 Diverticulosis of large intestine without perforation or abscess without bleeding; Z71.6 Tobacco abuse counseling; Z87.81 Personal history of (healed) traumatic fracture; Z88.1 Allergy status to other antibiotic agents; Z91.041 Radiographic dye allergy status; R00.0 Tachycardia, unspecified
CPT/HCPCS: 10078; 10081

== ENCOUNTER → 2019-08-20 | Outpatient (CLI) | payer OTHER ==
[~2019-08-20] VITALS: Ht 154.9 cm; Wt 56.7 kg
[~2019-08-20] MED LIST changes: +ASA81BEC PO; +ASPIR 8181 MG PO; +ASPIRIN325 PO; +IPRAT-ALBUT 0.5-3 ML INH; +LIDOPATCH1 EACH TRANSDERM; +LISINOPRIL5 MG PO; +METOPROLOL SUCC25 M1 PO; +NABUMETONE 500500 M1 PO; +NITROSTAT0.4 MG SUBLING; +PERCOCET 5-3251 EACH PO; +PREDNISONE 20 M20 MG PO; +PROAIR HFA8.5 GM INH; +ZYRTEC10 MG PO
--- NOTE | 2019-08-22 17:06 | PATH ---
[facility] [address] [place] [address] PATHOLOGY RPT PROCEDURE Name: BEE YU Room #: REG DEEPAK Callejas.#: [id number] Admission: 08/20/19 Date of : 48 Discharge: Report #: [id number] Path Case #: [id number] [facility] Accession Number: [id number] . 01 Material submitted: . stomach - BIOPSY OF GASTRITIS TO R/O H. PYLORI . 01 Clinical history: . Preop DX: N/V, hiatal hernia Postop DX: Gastritis r/o h. Pylori . 02 Diagnosis: Gastric mucosa, gastritis rule out H. pylori, endoscopic biopsy: - Helicobacter pylori-induced moderate to active gastritis. - Negative for intestinal metaplasia or atrophy. - Few Helicobacter pylori organisms identified on the properly-controlled immunohistochemical stain. . (IUV:mml; 08/22/2019) QL 08/22/2019 1249 Local . 02 Electronically signed: . Arianne Shanks MD, Pathologist NPI- [id number] . 01 Gross description: . Received in formalin labeled "Bee Yu BX of gastritis to r/o H. pylori," are four segments of ayala soft tissue measuring 0.6 x 0.6 x 0.2 cm in aggregate dimensions and ranging from 0.1 to 0.4 cm in maximum dimension. The specimen is submitted entirely in cassette A1. The smallest segment may not survive processing. ([facility]; 08/21/2019) XDC/XNC 08/22/2019 1247 Local . 02 Pathologist provided ICD-10: K29.60, B96.81 . 02 CPT . 722675, I18908 Specimen Comment: A courtesy copy of this report has been sent to [phone], [phone] Specimen Comment: [phone] Specimen Comment: Report sent to and Performed at: [address] [place] [id number] [place] [address] PATHOLOGY RPT PROCEDURE Name: BEE YU Room #: KRISTOPHER Dumas#: [id number] Admission: 08/20/19 Date of : 48 Discharge: Report #: [id number] Path Case #: [id number] MD Mike Tim MD Phone: [phone] Performed at: [address] [id number] MD Arianne Shanks MD Phone: [phone]
--- NOTE | 2019-08-27 08:11 | P ---
[facility] [place] [address] PROCEDURE REPORT Name: OKSANA MARIN [id number] Admission: 08/20/19 Attend Phys: Rigo Townsend Discharge: Date of : 48 Report #: [id number] THIS REPORT FOR: //name// CC: Rigo Marcial MD DATE OF SERVICE: 08/20/2019 PROCEDURE PERFORMED: Upper endoscopy with biopsies and esophageal dilation. HISTORY OF PRESENT ILLNESS: The patient is a 68-year-old female with recurrent nausea, vomiting as well as dysphagia. She underwent an upper endoscopy by my partner last summer in 2017, was noted to have normal esophagus at that time, small hiatal hernia, and mild gastritis. Biopsies were negative. The patient has recurrent dysphagia. She did benefit from dilation in the past. DESCRIPTION OF PROCEDURE: The risks and benefits of the procedure were explained to the patient. Those risks including but not limited to bleeding, perforation and the risk of sedation. She understood these risks and gave informed consent. Sedation was given using propofol per Anesthesia. Next, using a standard Olympus upper endoscope, the scope was placed in the patient's mouth and advanced under direct vision through the esophagus, stomach and into the second portion of the duodenum. The esophagus was normal throughout. The GE junction was normal. No evidence of stricture. No evidence of esophagitis. Upon entering the stomach, a small hiatal hernia was noted. Overall, the gastric mucosa was normal in the fundus and mild gastritis was noted in the body and the antrum. Biopsies were obtained. No evidence of ulcerations or erosions. The pylorus was normal and patent. The duodenal bulb, first and second portion were all normal. The scope was then brought back up into the patient's stomach and a Savary guidewire was inserted through the scope, leaving the guidewire in place as the scope was then withdrawn. Next, a 48-Danish followed by a 51-Danish Savary dilation of the esophagus was then performed without difficulty. The dilator and wire removed. The scope was reintroduced into the patient's stomach. There was no evidence of mucosal tear after dilation. The scope was then withdrawn and the procedure terminated. The patient tolerated the procedure well. IMPRESSION: 1. Small hiatal hernia. 2. Mild gastritis. 3. Otherwise, normal upper endoscopy. RECOMMENDATIONS: 1. Await biopsy results. 2. Observe the patient post-dilation. [address] [address] PROCEDURE REPORT Name: OKSANA MARIN Room #: REG CLMarcelino Dumas#: [id number] Admission: 08/20/19 Attend Phys: Rigo Townsend Discharge: Date of : 48 Report #: [id number] 3. Etiology of intermittent nausea and vomiting is unclear. Would recommend possible gastric emptying study in the near future as well as using Zofran on a p.r.n. basis. Thank you for allowing me to participate in her care. <ELECTRONICALLY SIGNED> By: Rigo Diaz MD 08/27/19 0811 1221 0008 Rigo Diaz MD /nt
== END | disposition home or self-care (01) ==
LOC: GI 10:00
DX: R11.2 Nausea with vomiting, unspecified (principal); R13.19 Other dysphagia; K29.60 Other gastritis without bleeding; B96.81 Helicobacter pylori [H. pylori] as the cause of diseases classified elsewhere; K44.9 Diaphragmatic hernia without obstruction or gangrene; K21.9 Gastro-esophageal reflux disease without esophagitis; I10 Essential (primary) hypertension; E78.5 Hyperlipidemia, unspecified; F32.9 Major depressive disorder, single episode, unspecified; F17.210 Nicotine dependence, cigarettes, uncomplicated; Z98.890 Other specified postprocedural states; Z98.51 Tubal ligation status; Z79.899 Other long term (current) drug therapy; Z91.041 Radiographic dye allergy status; Z88.8 Allergy status to other drugs, medicaments and biological substances
CPT/HCPCS: 62110; 62900

== ENCOUNTER 2021-01-07 10:17 | Inpatient (IN) | payer OTHER ==
[~2021-01-07] VITALS: Ht 154.9 cm; Wt 63.5 kg
[2021-01-07 10:19] VITALS: BP 148/109
[2021-01-07 10:55] LABS: ABSOLUTE NEUTROPHILS 5.4 thou/uL (1.4-8.2); BASOPHILS 0.7 % (0.0-2.0); EOSINOPHILS 4.4 % (0.0-3.0); HEMATOCRIT 43.2 % (37.0-47.0); HEMOGLOBIN 14.6 gm/dL (12.0-15.0); LYMPHOCYTES 13.7 % (24.0-44.0); MCH 32.8 pg (26.0-34.0); MCHC 33.8 g/dL (28.0-37.0); MONOCYTES 8.6 % (1.0-8.0); PLATELET COUNT 209 thou/uL (150-400); POLYS 72.6 % (36.0-66.0); RBC 4.45 mil/uL (4.20-5.00); RDW 13.1 % (10.5-14.5); WBC 7.4 thou/uL (4.0-11.0)
[2021-01-07 11:02] LABS: CALCIUM 9.3 mg/dL (8.5-10.1); CREATININE 1.1 mg/dL (0.6-1.0); POTASSIUM 4.2 mmol/L (3.5-5.1)
[2021-01-07] MEDS ORDERED: lisinopril PO (11:03)
[2021-01-07] MEDS ORDERED: NEURIVA PO (11:03)
[2021-01-07] MEDS ORDERED: B12 PO (11:04)
[2021-01-07] MEDS ORDERED: DAILY VITAMIN1 EAC6 PO (11:04)
[2021-01-07 11:11] LABS: ALBUMIN 4.3 g/dL (3.4-5.0); TOTAL BILIRUBIN 0.7 mg/dL (0.2-1.0); TOTAL PROTEIN 7.9 g/dL (6.4-8.2); TROPONIN-I 0.12 ng/mL (<0.06)
--- NOTE | 2021-01-07 11:17 | NUR ---
IGLESIA MARIN [phone]
[2021-01-07 11:58] VITALS: BP 157/100
[2021-01-07 12:15] VITALS: BP 103/58
--- NOTE | 2021-01-07 14:17 | NUR ---
PT ARRIVED ON UNIT AT 1230. PT IS A&OX4, APPEARS ANXIOUS. PT CALLED SPOUSE TO INFORM OF ROOM NUMBER. PT STATES SHE SMOKES "AT LEAST A PACK PER DAY" AND HAS NO INTEREST IN QUITTING. PT ORIGINALLY STATED THAT SHE DID NOT HAVE OXYGEN AT HOME BUT NOW STATES SHE DOES WEAR IT "SOMETIMES, WHEN I SLEEP" PT STILL ACTIVELY SMOKES IN HOME. PT CURRENTLY ON 2L O2 VIA NC.
[2021-01-07 15:12] VITALS: BP 143/86
--- NOTE | 2021-01-07 15:55 | EKG ---
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: : 1950 Requested By: Alison Hanson Order Number: [id number] MD: Delfino Rea Measurements Intervals [place] Rate: 82 P: 68 [place]: 181 QRS: -56 QRSD: 100 T: 56 QT: 366 QTc: 428 Interpretive Statements Sinus rhythm Abnormal R-wave progression, early transition Inferior infarct, old Compared to ECG 07/08/2019 07:25:11 Myocardial infarct finding now present Sinus tachycardia no longer present Left-axis deviation no longer present Electronically Signed On 01-07-2021 15:54:53 CDT by Delfino Rea [email or web address] <ELECTRONICALLY SIGNED> By: Delfino Rea MD, FACC 01/07/21 1554 1047 1047 Delfino Rea MD, [facility] /EPI
--- NOTE | 2021-01-07 15:56 | EKG ---
[address] [place] [address] ELECTROCARDIOGRAM REPORT Name: OKSANA MARIN Room #: 359-P ADM IN M.R.#: [id number] Admission: 01/07/21 Attend Phys: Gómez Yates MD Discharge: Date of : 48 Report #: [id number] 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 : 1950 Requested By: Gary Rees Order Number: [id number] MD: Delfino Rea Measurements Intervals [place] Rate: 81 P: 49 [place]: 187 QRS: -44 QRSD: 92 T: 22 QT: 371 QTc: 431 Interpretive Statements Sinus rhythm Left axis deviation Low voltage, precordial leads Compared to ECG 07/08/2019 07:25:11 Sinus tachycardia no longer present Electronically Signed On 01-07-2021 15:56:02 CDT by Delfino Rea [email or web address] <ELECTRONICALLY SIGNED> By: Delfino Rea MD, [facility] 01/07/21 1556 1310 1310 Delfino Rea MD, FACC /EPI
[2021-01-07 19:33] VITALS: BP 120/66
--- NOTE | 2021-01-07 19:51 | NUR ---
PT RESTING IN BED. VOICE HOARSE, SOA WITH MOVEMENT. O2 PER NC. PLEASANT TALKATIVE. INDEP TO RESTROOM. TALKED ABOUT MISSING NAIL FILL APPOINTMENT TODAY.
[2021-01-08 02:54] VITALS: BP 133/87
[2021-01-08 03:34] LABS: ABSOLUTE NEUTROPHILS 4.6 thou/uL (1.4-8.2); BASOPHILS 0.2 % (0.0-2.0); HEMATOCRIT 39.4 % (37.0-47.0); HEMOGLOBIN 13.1 gm/dL (12.0-15.0); LYMPHOCYTES 12.1 % (24.0-44.0); MCH 32.6 pg (26.0-34.0); MCHC 33.3 g/dL (28.0-37.0); MCV 98.1 fL (80.0-100.0); MONOCYTES 2.9 % (1.0-8.0); PLATELET COUNT 183 thou/uL (150-400); POLYS 84.8 % (36.0-66.0); RBC 4.02 mil/uL (4.20-5.00); RDW 13.4 % (10.5-14.5); WBC 5.5 thou/uL (4.0-11.0)
[2021-01-08 03:45] LABS: ANION GAP 15 mmol/L (7-16); BUN 13 mg/dL (7-18); CALCIUM 8.7 mg/dL (8.5-10.1); CHLORIDE 100 mmol/L (98-107); CHOLESTEROL 181 mg/dL (<200); CO2 24 mmol/L (21-32); CREATININE 1.3 mg/dL (0.6-1.0); GLUCOSE 188 mg/dL (74-106); HDL CHOLESTEROL 100 mg/dL (>40); LDL CHOLESTEROL 72 mg/dL (<100); SODIUM 139 mmol/L (136-145); TC:HDL 1.8 Ratio (Not establshd); TRIGLYCERIDE 45 mg/dL (<150); VLDL 9 mg/dL (<40)
[2021-01-08 03:51] LABS: SERUM ASSESSMENT Clear
[2021-01-08 07:35] VITALS: BP 140/76
[2021-01-08 16:05] VITALS: BP 112/53
--- NOTE | 2021-01-08 17:44 | 2DMMODE ---
[facility] [place] [address] 2 D/M-MODE ECHOCARDIOGRAM Name: OKSANA MARIN Room #: 359-P ADM IN M.R.#: [id number] Admission: 01/07/21 Attend Phys: Gómez Yates MD Discharge: Date of : 48 Report #: [id number] THIS REPORT FOR: cc: Imtiaz Marcial MD, Michael D. MD Lammoglia, Francisco J. MD ~ APPROVED REPORT Study performed: 01/08/2021 09:11:39 EXAM: Comprehensive 2D, Doppler, and color-flow Echocardiogram Patient Location: Bedside Room #: 359 Status: on-call BSA: 1.62 HR: 96 bpm BP: 140/76 mmHg Rhythm: NSR Other Information Study Quality: Adequate Risk Factors: Cardiac Risk Factors: HTN, Smoking Indications COPD Dyspnea Cardiomyopathy 2D Dimensions IVSd: 9.83 (7-11mm) LVOT Diam: 19.00 (18-24mm) LVDd: 40.71 mm PWd: 10.14 (7-11mm) Ascending Ao: 32.74 (22-36mm) LVDs: 27.29 (25-40mm) Aortic Root: 29.01 mm LV Single Plane 4CH: 69.10 % LV Single Plane 2CH: 65.79 % Biplane EF: 67.7 % Volumes Left Atrial Volume (Systole) Single Plane 4CH: 37.92 mL Single Plane 2CH: 46.76 mL LA ESV Index: 28.00 mL/m2 [facility] [employer] [place] [address] 2 D/M-MODE ECHOCARDIOGRAM Name: OKSANA MARIN Room #: 359-P ADM IN M.R.#: [id number] Admission: 01/07/21 Attend Phys: Gómez Yates, Discharge: Date of : 48 Report #: [id number] Aortic Valve AoV Peak Kirill.: 1.86 m/s AO Peak Gr.: 13.84 mmHg LVOT Max P.31 mmHg LVOT Max V: 1.35 m/s NIKKI Vmax: 2.05 cm2 Mitral Valve E/A Ratio: 0.7 MV Decel. Time: 166.29 ms MV E Max Kirill.: 0.83 m/s MV A Kirill.: 1.23 m/s MV PHT: 48.23 ms IVRT: 62.28 ms TDI E/Lateral E': 10.38 E/Medial E': 9.22 Medial E' Kirill.: 0.09 m/s Lateral E' Kirill.: 0.08 m/s Pulmonary Valve PV Peak Kirill.: 1.06 m/s PV Peak Gr.: 4.47 mmHg Pulmonary Vein P Vein S: 0.90 m/s P Vein A: 0.17 m/s P Vein D: 0.62 m/s P Vein A Dur.: 64.6 msec P Vein S/D Ratio: 1.45 Tricuspid Valve TR Peak Kirill.: 2.69 m/s RAP Estimate: 7.00 mmHg TR Peak Gr.: 29.04 mmHg PA Pressure: 36.00 mmHg Left Ventricle The left ventricle is normal size. There is normal LV segmental wall motion. There is normal left ventricular wall thickness. Left ventricular systolic function is normal. The left ventricular ejection fraction is within the normal range. LVEF is 60-65%. Mild diastolic dysfunction is present (impaired relaxation pattern). Right Ventricle The right ventricle is normal size. The right ventricular systolic function is normal. [facility] [address] [place] [address] 2 D/M-MODE ECHOCARDIOGRAM Name: OKSANA MARIN Room #: 359-P [facility] IN .R.#: [id number] Admission: 01/07/21 Attend Phys: Gómez Yates, Discharge: Date of : 48 Report #: [id number] The left atrium size is normal. The right atrium size is normal. Aortic Valve Aortic valve is calcified. The aortic valve is normal in structure. No aortic regurgitation is present. There is no aortic valvular stenosis. Mitral Valve The mitral valve is normal in structure. Trace mitral regurgitation. No evidence of mitral valve stenosis. Tricuspid Valve The tricuspid valve is normal in structure. Mild tricuspid regurgitation. Pulmonary artery pressure is 36 mmHg. Pulmonic Valve The pulmonary valve is normal in structure. There is no pulmonic valvular regurgitation. Great Vessels The aortic root is normal in size. The ascending aorta is normal in size. IVC is normal in size and collapses >50% with inspiration. Pericardium There is no pericardial effusion. <Conclusion> The left ventricle is normal size. LVEF is 60-65%. The left atrium size is normal. Aortic valve is calcified. The aortic valve is normal in structure. No aortic regurgitation is present. There is no aortic valvular stenosis. The mitral valve is normal in structure. Trace mitral regurgitation. The tricuspid valve is normal in structure. Mild tricuspid regurgitation. Pulmonary artery pressure is 36 mmHg. The pulmonary valve is normal in structure. [place] [id number] 2 D/M-MODE ECHOCARDIOGRAM Name: OKSANA MARIN Room #: 359-P [facility] IN .R.#: [id number] Admission: 01/07/21 Attend Phys: Gómez Yates, Discharge: Date of : 48 Report #: [id number] The aortic root is normal in size. There is no pericardial effusion. <ELECTRONICALLY SIGNED> By: Emmanuel Ospina MD 01/08/21 1744 1744 1744 Emmanuel Ospina MD /INF
[2021-01-08 19:12] VITALS: BP 125/71
--- NOTE | 2021-01-08 20:45 | NUR ---
PT RESTING IN BED. PT STATED SHE SLEPT POORLY. PT PROVIDED PRN COUGH MED. O2 PER NC. PT REMAINS INDEP WITH AMBULATION. LUNGS COARSE.
[2021-01-09 04:46] VITALS: BP 130/69
[2021-01-09 07:09] VITALS: BP 148/120
--- NOTE | 2021-01-09 07:26 | NUR ---
ASSUMED PT CARE AT SHIFT CHANGE, PT IN BED BUT AWAKE. A&OX4. PT STATES SHE FEELS VERY RESTED TONIGHT. REVIEWED CARE PLAN AND NPO STATUS AT MIDNIGHT FOR TESTING TOMORROW. PT VERBALIZED UNDERSTANDING. DENIES PAIN AT THIS TIME. BREATHING UNLABORED.
[2021-01-09 11:07] VITALS: BP 121/65
[2021-01-09 15:23] VITALS: BP 117/69
[2021-01-09 19:50] VITALS: BP 128/81
[2021-01-10 03:45] VITALS: BP 125/58
--- NOTE | 2021-01-10 05:45 | NUR ---
PT MAKING PROGRESS TOWARDS GOALS. DENIED ANY CHEST PAIN THROUGHOUT THE NIGHT. STRESS TEST TODAY, NPO SINCE MIDNIGHT.
[2021-01-10 07:47] VITALS: BP 122/90
[2021-01-10 09:35] LABS: HEMOGLOBIN 13.5 gm/dL (12.0-15.0); MCH 33.5 pg (26.0-34.0); MCHC 34.6 g/dL (28.0-37.0); MCV 96.8 fL (80.0-100.0); RBC 4.03 mil/uL (4.20-5.00); RDW 13.3 % (10.5-14.5); WBC 9.1 thou/uL (4.0-11.0)
[2021-01-10 09:50] LABS: CALCIUM 8.9 mg/dL (8.5-10.1); MAGNESIUM 1.9 mg/dL (1.8-2.4); POTASSIUM 4.2 mmol/L (3.5-5.1)
[2021-01-10 15:22] VITALS: BP 151/69
--- NOTE | 2021-01-10 15:35 | NUR ---
INITIAL ASSESSMENT: SW reviewed chart and spoke with nursing and attending physician. Pt was admitted from home due to dyspnea/elevated troponin. Pt is on 2L of O@. Pt had stress test earlier today. Pt was off the unit during SW visit. Per chart, pt is alert/orientated x 4. Pt lives at home with her spouse. Prior to admission, pt was independent with ADLs. No use of DME. Pt has DME to use at home if needed. 7 steps to enter their home and no steps inside. Pt may be ready for discharge home tomorrow. SW will follow up with pt to discuss discharge planning.
[2021-01-10 19:37] VITALS: BP 176/93
[2021-01-10 23:46] VITALS: BP 136/76
[2021-01-11 05:04] VITALS: BP 154/90
[2021-01-11 05:13] LABS: HEMATOCRIT 39.9 % (37.0-47.0); HEMOGLOBIN 13.5 gm/dL (12.0-15.0); MCH 33.3 pg (26.0-34.0); MCHC 33.9 g/dL (28.0-37.0); MCV 98.1 fL (80.0-100.0); RBC 4.06 mil/uL (4.20-5.00); RDW 13.4 % (10.5-14.5); WBC 9.8 thou/uL (4.0-11.0)
[2021-01-11 05:42] LABS: CREATININE 1.1 mg/dL (0.6-1.0); MAGNESIUM 2.1 mg/dL (1.8-2.4); POTASSIUM 4.5 mmol/L (3.5-5.1)
--- NOTE | 2021-01-11 05:46 | NUR ---
PT MAKING PROGRESS TOWARDS GOALS. PT OF OXYGEN AT TIME OF INITIAL ASSESSMENT. O2 SAT RECHECKED AT HS AND WAS 94% ON ROOM AIR. DENIED ANY CHEST DISCOMFORT OR SOA THROUGHOUT THE NIGHT.
[2021-01-11 08:09] VITALS: BP 171/93
[2021-01-11] MEDS ORDERED: PREDNISONE 10 M10 MG PO (13:59)
[2021-01-11] MEDS ORDERED: TRELEGY ELLIPT1 EACH INH (14:00)
[2021-01-11] MEDS ORDERED: VENTOLIN HFA INH8 GM INH (14:04)
[2021-01-11 14:45] VITALS: BP 171/93
--- NOTE | 2021-01-11 15:00 | NUR ---
DISCHARGE NOTE: SW reviewed chart and spoke with nursing and attending physician. Pt is medically stable for discharge home today. SW met with pt at bedside. Introduced role of SW. Pt is alert/orientated x 4. Pt reports she lives at [facility] with her . Prior to admission, pt was independent with ADLs. Pt states she does have a walker and scooter at home. Pt's PCP is Dr. Imtiaz Marcial. Pt denies having and needs at time of discharge. Pt's family to provide transportation home. No SW needs identified at this time, but is available to assist should needs arise.
[2021-01-11 15:30] VITALS: BP 171/93
[2021-01-11 19:20] VITALS: BP 171/93
== END 2021-01-11 15:41 | disposition home or self-care (01) | DRG 189 ==
LOC: ER 10:17 → 3W 12:21 → EROBS 12:24 → 3W 12:24
PROVIDERS: Emergency Medicine; Nurse Practitioner; ADMIT Internal Medicine; ATTEND Internal Medicine
DX: J96.01 Acute respiratory failure with hypoxia (principal); N17.9 Acute kidney failure, unspecified; I51.81 Takotsubo syndrome; J44.1 Chronic obstructive pulmonary disease with (acute) exacerbation; I42.8 Other cardiomyopathies; Z20.822 Contact with and (suspected) exposure to COVID-19; K21.9 Gastro-esophageal reflux disease without esophagitis; E78.5 Hyperlipidemia, unspecified; I10 Essential (primary) hypertension; F32.9 Major depressive disorder, single episode, unspecified; F17.210 Nicotine dependence, cigarettes, uncomplicated; R79.89 Other specified abnormal findings of blood chemistry; J96.02 Acute respiratory failure with hypercapnia; R74.8 Abnormal levels of other serum enzymes; I25.10 Atherosclerotic heart disease of native coronary artery without angina pectoris; J06.9 Acute upper respiratory infection, unspecified; F12.20 Cannabis dependence, uncomplicated; Z88.1 Allergy status to other antibiotic agents; Z91.041 Radiographic dye allergy status; Z71.6 Tobacco abuse counseling
CPT/HCPCS: 10879

== ENCOUNTER → 2021-09-29 | Outpatient (CLI) | payer OTHER ==
[~2021-09-29] MED LIST changes: +B12 PO; +DAILY VITAMIN1 EAC6 PO; +NEURIVA PO; +TRELEGY ELLIPT1 EACH INH; +VENTOLIN HFA INH8 GM INH; +lisinopril PO
== END ==
LOC: CAT 09:56
PROVIDERS: ATTEND Pediatrics
DX: Z12.2 Encounter for screening for malignant neoplasm of respiratory organs (principal); Z87.891 Personal history of nicotine dependence; R91.1 Solitary pulmonary nodule